=== PATIENT | male | born 2000 | race Caucasian/White ===

== ENCOUNTER 2019-07-02 04:37 | Emergency (ER) | payer SELFPAY ==
[~2019-07-02] VITALS: Ht 162.6 cm; Wt 50.3 kg
[2019-07-02 04:40] VITALS: BP 143/90; Ht 162.6 cm; Wt 50.3 kg
== END 2019-07-02 06:00 | disposition home or self-care (01) ==
LOC: ED 04:37
DX: S63.501A Unspecified sprain of right wrist, initial encounter (principal); J45.909 Unspecified asthma, uncomplicated; W18.39XA Other fall on same level, initial encounter; Y93.89 Activity, other specified; Y92.89 Other specified places as the place of occurrence of the external cause; Y99.8 Other external cause status
CPT/HCPCS: A4570

== ENCOUNTER 2019-07-03 17:58 | Emergency (ER) | payer SELFPAY ==
[~2019-07-03] VITALS: Ht 160 cm; Wt 49.4 kg
[2019-07-03 18:12] VITALS: Ht 160 cm; Wt 49.4 kg
[2019-07-03 19:38] VITALS: BP 124/59
== END 2019-07-03 19:38 | disposition home or self-care (01) ==
LOC: ED 17:58
DX: S62.111A Displaced fracture of triquetrum [cuneiform] bone, right wrist, initial encounter for closed fracture (principal); X58.XXXA Exposure to other specified factors, initial encounter; Y93.89 Activity, other specified; Y92.89 Other specified places as the place of occurrence of the external cause; Y99.8 Other external cause status; J45.909 Unspecified asthma, uncomplicated
CPT/HCPCS: A4570

== ENCOUNTER 2019-07-29 03:23 | Emergency (ER) | payer MEDICAID ==
[~2019-07-29] VITALS: Ht 160 cm; Wt 50.4 kg
[2019-07-29 03:28] VITALS: Ht 160 cm; Wt 50.4 kg
[2019-07-29 04:43] VITALS: BP 118/60
== END 2019-07-29 04:43 | disposition home or self-care (01) ==
LOC: ED 03:23
DX: K08.89 Other specified disorders of teeth and supporting structures (principal); J45.909 Unspecified asthma, uncomplicated
CPT/HCPCS: A4570